=== PATIENT | female | born 1965 | race Caucasian/White ===

== ENCOUNTER 2022-08-11 16:11 | Outpatient (REF) | payer OTHER, SELFPAY ==
--- NOTE | ~2022-08-11 | CT_ITS ---
EXAMINATION: CT HEAD WITHOUT CONTRAST CLINICAL INFORMATION: Tension-type headache. Chronic sinusitis. COMPARISON: There are no prior studies available for comparison. TECHNIQUE: Multidetector CT imaging of the head was obtained without the use of intravenous contrast. Coronal and sagittal reformatted images were generated at the technologist workstation. This CT examination was performed using dose optimization techniques as appropriate, variously including the following: *Automated exposure control *Adjustment of mA and/or kV according to patient size (this includes techniques or standardized protocols for targeted exams where dose is matched to indication/reason for exam; i.e. extremities or head) *Use of iterative reconstruction technique DLP: 665. mGy-cm. FINDINGS: There is no evidence of acute intracranial hemorrhage or territorial infarction. No abnormal mass-effect or midline shift is seen. Lee to white matter differentiation is well preserved. No extra-axial fluid collections are identified. The ventricles and sulci are normal in size. Brain parenchymal attenuation is unremarkable. The osseous structures and soft tissues are normal. The mastoid air cells and visualized paranasal sinuses are well-aerated. Nasal septum is deviated to the right and is a right-sided bony nasal septal spur. CT/CT head/brain wo IV con IMPRESSION: 1. No acute bleeds or infarct. No masses are demonstrated. 2. The visualized paranasal sinuses and mastoid air cells are well-aerated.
== END 2022-08-11 16:12 | disposition home or self-care (01) ==
LOC: HO.CT 16:11
PROVIDERS: Visit Provider Psychiatry & Neurology Neurology
DX: G44.209 Tension-type headache, unspecified, not intractable (principal); J32.9 Chronic sinusitis, unspecified
CPT/HCPCS: 70450

== ENCOUNTER 2024-07-14 09:45 | Emergency (ER) | payer OTHER, SELFPAY ==
--- NOTE | ~2024-07-14 | XR_ITS ---
EXAMINATION: XR SHOULDER, RIGHT CLINICAL INFORMATION: Pain with movement. COMPARISON: None available. TECHNIQUE: Three views of the right shoulder. FINDINGS: Relative lucency in the lateral aspect of the clavicle measuring 2 cm transverse. This of uncertain etiology, could be related to decreased bone mineralization versus a bony lesion. On image 1, there is a 1.4 cm rounded density partially projected over the humeral shaft. This is not visualized on the other views, of uncertain etiology, possibly overlying the patient. Mild acromioclavicular arthritis. Glenohumeral joint space is maintained. No acute fracture or dislocation. XR/XR shoulder RT min 2V IMPRESSION: * No evidence of acute osseous abnormality. * 2 cm focus of relative lucency of the lateral clavicle, of uncertain etiology, could be related to decreased bone mineralization versus underlying bony lesion. Clinically correlate, correlate with patient's clinical history. Further evaluation with bone scan or MRI as clinically indicated. * 1.4 cm density partially projected over the proximal humeral shaft, only seen on one view. This could be overlying the patient. Consider additional radiographs or further evaluation, as clinically indicated. Electronically signed by: Tho Renee MD 07/14/2024 11:43 AM KEERTHI
[2024-07-14 09:56] VITALS: BP 155/89; PULSE 115; RESP 20; TEMP 36.6; O2SAT 98; BMI 31.9
--- NOTE | 2024-07-14 12:44 | ED_ITS ---
HPI - Extremity Problem General Chief complaint: Extremity Injury, Upper Stated complaint: R shoulder/arm pain Time Seen by Provider: 07/14/24 12:43 Source: patient and family Mode of arrival: ambulatory Limitations: no limitations History of Present Illness ED Provider: Xander REEVES Narrative: Patient is a 58-year-old female presenting to the emergency department with complaint of right shoulder pain since Sunday. Denies fall or other trauma. Has not taken any over the counter medications for her symptoms. Denies weakness, numbness, or tingling but reports decreased range of motion due to pain. Denies chest pain, palpitations, dyspnea. States pain present upon waking, unsure if she slept on her arm in an odd manner. MD Complaint: joint pain Onset (ago): day(s) Pain Consistency: constant Location: right and upper extremity Quality: aching Relieving factors: rest Exacerbating factors: range of motion Associated symptoms: denies other symptoms Related Data Previous Rx's ?Medication ?Instructions ?Recorded cyclobenzaprine 5 mg tablet 5 mg PO TID PRN muscle spasm #10 07/14/24 tabs lidocaine 5 % topical patch 1 patch topical DAILY #15 ea 07/14/24 prednisone 20 mg tablet 40 mg (2 x 20 mg) PO DAILY #10 tabs 07/14/24 Allergies Allergy/AdvReac Type Severity Reaction Status Date / Time latex Allergy Unknown Verified 07/14/24 10:00 Review of Systems Review of Systems: As per HPI. Yes all other systems are reviewed and are negative Constitutional: Constitutional: Reports as per HPI [facility] Social History Social History Advance Directives: No Advance Directives Information Provided: Yes Do you have a plan to hurt others: No Plan Physical Exam Vital Signs: Vital Signs: Last Vital Signs Temp 97.9 F 07/14/24 09:56 Pulse 115 H 07/14/24 09:56 Resp 20 07/14/24 09:56 BP 155/89 H 07/14/24 09:56 Pulse Ox 98 07/14/24 09:56 O2 Del Method Room Air 07/14/24 09:56 BMI result Body Mass Index 31.9 Vital signs have been reviewed and appear to be correct. Blood pressure elevated. Heart rate slightly tachycardic. Respiratory rate normal. Temperature normal. Oxygen saturation normal. Const: General: cooperative, healthy appearing and no acute distress Orientation/consciousness: oriented to person, oriented to place, oriented to time and patient oriented x3 Limitations: no limitations HEENT: Head: Yes normocephalic and Yes atraumatic Ears: external ears normal General nose exam: Normal external nose present Face and sinus: Yes face symmetric Mouth: oropharynx normal and moist mucous membranes Throat: Yes uvula midline Eyes: Pupils: Equal, round and reactive pupils present Neck: Neck: Yes normal visual inspection and Yes supple Resp: Effort & Inspection: normal respiratory effort and able to speak in complete sentences Auscultation: clear to auscultation bilaterally Cardio: Rate: regular rate Rhythm: regular rhythm Heart sounds: S1 normal heart sound present and S2 normal heart sound present GI: Palpation (GI): Soft to palpation and nontender Auscultation: normoactive bowel sounds : General: Yes no CVA tenderness Back/Spine/Pelvis: Back: no CVA tenderness Skin: General skin exam: elasticity normal and turgor normal Neuro: General: oriented to person, oriented to place, oriented to time, patient oriented x3, tone normal, moves all extremities, Normal light touch and pain sensation, no focal motor deficits, CN's II-XI intact bilaterally and deep tendon reflexes 2+ bilaterally Cranial nerves: Yes Equal, round and reactive pupils present Cognition (Neuro): normal cognition Motor exam (neuro): Normal motor muscle tone present throughout Extrem: General: Yes full ROM, Yes no pedal edema and Yes no calf tenderness Right upper extremity: shoulder/upper arm Details: normal to inspection, tenderness Location: of the A-C joint and of the proximal humerus and abnormal ROM (abduction to 90 degrees, unable to externally rotate due to pain); no swelling, no ecchymosis, no crepitus, no deformity and no unusual warmth and Extremity exam: right hand Details: vascular exam Details: radial pulse present and normal capillary refill and normal ROM of fingers Psych: Mental Status: mental status grossly normal Affect: normal affect Thought process: Normal thought process present Medications Administered Discontinued Medications Generic Name Dose Route Start Last Admin Trade Name Freq PRN Reason Stop Dose Admin Cyclobenzaprine HCl 10 mg 07/14/24 13:00 07/14/24 13:21 Cyclobenzaprine Hcl 10 Mg Tablet PO 07/14/24 13:01 10 mg ONCE ONE Administration Ketorolac Tromethamine 30 mg 07/14/24 13:00 07/14/24 13:21 Ketorolac Tromethamine 30 Mg/Ml Vial IM 07/14/24 13:01 30 mg ONCE ONE Administration Prednisone 40 mg 07/14/24 13:04 07/14/24 13:21 Prednisone 20 Mg Tablet PO 07/14/24 13:05 40 mg ONCE ONE Administration Medical Decision Making Medical Decision Making [facility] Narrative: Patient is a 58-year-old female presenting to the emergency department with complaint of right shoulder pain since Sunday. On exam patient is awake, A+Ox3, VS WNL, afebrile, normal neurological exam without focal deficits, physical exam findings as above. Given reported symptoms and physical exam findings, initial differential includes right shoulder strain, sprain, rotator cuff tendinopathy, arthritis. Less likely fracture. X-ray notable for no acute abnormalities. My interpretation is in agreement with the radiologist's interpretation. Will treat patient with course of steroids, muscle relaxer. Follow up with PCP as patient would likely benefit from physical therapy. Will also refer to orthopedics for further evaluation and management. Return precautions discussed. Patient verbalized understanding of and agreement with plan. Differential Diagnosis Differential Diagnoses: The differential diagnosis associated with the presentation includes As per MDM. Independent Interpretation I performed an independent interpretation of an: Plain X-Ray Interpretation: No acute abnormalities of the right shoulder. Radiology Impression Discussion of test interpretation with radiology: I have reviewed the radiologist's reading. Radiologist Impression: XR/XR shoulder RT min 2V IMPRESSION: * No evidence of acute osseous abnormality. * 2 cm focus of relative lucency of the lateral clavicle, of uncertain etiology, could be related to decreased bone mineralization versus underlying bony lesion. Clinically correlate, correlate with patient's clinical history. Further evaluation with bone scan or MRI as clinically indicated. * 1.4 cm density partially projected over the proximal humeral shaft, only seen on one view. This could be overlying the patient. Consider additional radiographs or further evaluation, as clinically indicated. External Record Review External record reviewed: Inpatient record, Office record and Outpatient record Prescription Management I considered prescription management with: Pain Medication and Other Discharge Plan Discharge Clinical Impression: Acute pain of right shoulder Patient Disposition: Home, Self-Care Instructions: Rotator Cuff Tendinitis (ED), Shoulder Pain (ED) Additional Instructions: You were evaluated in the emergency department today for right shoulder pain. Your x-ray did not show evidence of any acute injuries. You are being prescribed a course of steroids to decrease inflammation, a muscle relaxer, as well as topical lidocaine patches which you can wear for up to 12 hours in a 24 hour period. Take all medications as prescribed. Do not apply heat directly over the patches. We recommend that you follow-up with your primary care provider as you may require physical therapy to improve your symptoms. You are also being referred to orthopedics for further evaluation. Return to the emergency department with new or concerning symptoms. XR/XR shoulder RT min 2V IMPRESSION: * No evidence of acute osseous abnormality. * 2 cm focus of relative lucency of the lateral clavicle, of uncertain etiology, could be related to decreased bone mineralization versus underlying bony lesion. Clinically correlate, correlate with patient's clinical history. Further evaluation with bone scan or MRI as clinically indicated. * 1.4 cm density partially projected over the proximal humeral shaft, only seen on one view. This could be overlying the patient. Consider additional radiographs or further evaluation, as clinically indicated. Prescriptions: New lidocaine 5 % adhesive patch,medicated 1 patch topical DAILY Qty: 15 0RF Rx Instructions: leave on most painful area for up to 12 hrs cyclobenzaprine 5 mg tablet 5 mg PO TID PRN (Reason: muscle spasm) Qty: 10 0RF prednisone 20 mg tablet 40 mg PO DAILY Qty: 10 0RF Referrals: [facility] [Provider Group] Print Language: Maori
[2024-07-14] MEDS: predniSONE 20 MG TABLET 40 MG PO (13:21)
[2024-07-14] MEDS: Ketorolac Tromethamine 30 MG/ML VIAL IM (13:21)
[2024-07-14] MEDS: Cyclobenzaprine HCl 10 MG TABLET PO (13:21)
[2024-07-14 13:45] VITALS: BP 141/88; PULSE 103; RESP 16; TEMP 37.1; O2SAT 95
[2024-07-14 13:50] VITALS: BP 141/88; PULSE 103; RESP 16; TEMP 37.1; O2SAT 95
== END 2024-07-14 13:50 | disposition home or self-care (01) ==
PROVIDERS: Emergency Provider Emergency Medicine; PCP Internal Medicine
DX: M25.511 Pain in right shoulder (principal); Z79.899 Other long term (current) drug therapy
CPT/HCPCS: 73030; 96372; 99283; 99284; J1885

== ENCOUNTER 2024-10-15 05:16 | Emergency (ER) | payer OTHER, SELFPAY ==
[2024-10-15 05:23] VITALS: BP 164/68; PULSE 100; RESP 18; TEMP 37.1; O2SAT 97; BMI 31.0
[2024-10-15 06:51] LABS: Influenza A PCR POSITIVE (Negative); Influenza B PCR NEGATIVE (Negative); Resp Syncy Virus RNA Qual PCR NEGATIVE (Negative); SARS COV2 PCR INHOUSE NEGATIVE (Negative)
--- NOTE | 2024-10-15 08:52 | ED_ITS ---
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 She is taking tylenol but does not have motrin at home. Her spouse is also sick. She is able to drink, no CP, no dyspnea MD elicited complaint: fever, cough and rhinorrhea Onset (ago): day(s) (4) Consistency: constant Severity: moderate Description of mucous: clear Able to tolerate fluids by mouth: Yes Exacerbating factors: other (movements) Relieving factors: nothing Context: sick contacts Associated symptoms: fever, chills, myalgias and cough Treatments prior to arrival: none Related Data Previous Rx's ?Medication ?Instructions ?Recorded cyclobenzaprine 5 mg tablet 5 mg PO TID PRN muscle spasm #10 07/14/24 tabs lidocaine 5 % topical patch 1 patch topical DAILY #15 ea 07/14/24 prednisone 20 mg tablet 40 mg (2 x 20 mg) PO DAILY #10 tabs 07/14/24 ibuprofen 600 mg tablet 600 mg PO Q6H PRN pain #30 tabs 10/15/24 ondansetron 4 mg disintegrating 4 mg PO Q8H PRN nausea and 10/15/24 tablet vomiting #20 tabs Allergies Allergy/AdvReac Type Severity Reaction Status Date / Time latex Allergy Unknown Verified 10/15/24 05:26 Review of Systems Review of Systems: Constitutional : No Fever, pos Chills, pos Fatigue ENT/Mouth : No sore throat, No Rhinorrhea Eyes: No Eye Pain, No Swelling, No Redness Cardiovascular : No Chest Pain, No SOB, No Dyspnea on Exertion Respiratory : pos Cough, No Sputum Gastrointestinal : pos Nausea, No Vomiting, No Diarrhea, No abdominal Pain Genitourinary : No Dysuria, No Urinary Frequency, No Hematuria, Musculoskeletal : No joint pain, pos Myalgias, No Joint Swelling Skin : No Skin Lesions, No rash Neuro : No Weakness, No Numbness, No Dizziness, no Headache All other systems reviewed and are negative [facility] Past Medical History Attestation statement: The following information was validated with the patient. Source: old records reviewed Medical History Hyperlipidemia Social History Social History (Updated 10/15/24 @ 08:56 by Nancy Bautista DO) Patient Tobacco Use Status: Never used Tobacco Advance Directives: No Advance Directives Information Provided: Yes Do you have a plan to hurt others: No Plan Physical Exam Vital Signs: Vital Signs: Last Vital Signs Temp 98.7 F 10/15/24 05:23 Pulse 100 10/15/24 05:23 Resp 18 10/15/24 05:23 BP 164/68 H 10/15/24 05:23 Pulse Ox 97 10/15/24 05:23 O2 Del Method Room Air 10/15/24 05:23 BMI result Body Mass Index 31.0 Appearance: Alert. Oriented X3. No acute distress. Eyes: Pupils equal, round and reactive to light. ENT: Pharynx normal. Neck: Normal inspection. Neck supple. CVS: Normal heart rate and rhythm. Pulses normal. Respiratory: No respiratory distress. Breath sounds normal. Abdomen: Soft and nontender. Skin: Skin warm and dry. Normal skin color. Normal skin turgor. Extremities: No lower extremity edema. No calf ttp Neuro: Oriented X 3. No motor deficit. No sensory deficit. CN2-12 intact Medical Decision Making Medical Decision Making [facility] Narrative: 59 yo female HLD not toxic here with c/o viral syndrome and URI symptoms at this time she has a flu like illness VS stable and clear lungs will obtain viral panel. she is out of window for tamiflu. Given motrin and tylenol with return precautions Differential Diagnosis Differential Diagnoses: The differential diagnosis associated with the pre sentation includes viral syndrome, lungs clear doubt pneumonia Admission/Observation Consideration of admission/observation: Escalation of care including admission/observation considered VS stable, not toxic stable for DC Lab Data [facility] Lab Attestation statement: I reviewed the patient's lab results. Labs: Lab Results 10/15/24 Range/Units 06:06 Influenza Type A (PCR) POSITIVE A (Negative) Influenza Type B (PCR) NEGATIVE (Negative) RSV RNA Qual (PCR) NEGATIVE (Negative) SARS-CoV-2 RNA (RT-PCR) NEGATIVE (Negative) Discharge Plan Discharge Clinical Impression: Influenza Patient Disposition: Home, Self-Care Instructions: Influenza (ED) Additional Instructions: return for any worsening symptoms or concerns such as difficulty walking, breathing, unable to eat or drink or any other concerns wear a mask and protect others Prescriptions: New ibuprofen 600 mg tablet 600 mg PO Q6H PRN (Reason: pain) Qty: 30 0RF ondansetron 4 mg tablet,disintegrating 4 mg PO Q8H PRN (Reason: nausea and vomiting) Qty: 20 0RF No Action lidocaine 5 % adhesive patch,medicated 1 patch topical DAILY Qty: 15 0RF Rx Instructions: leave on most painful area for up to 12 hrs cyclobenzaprine 5 mg tablet 5 mg PO TID PRN (Reason: muscle spasm) Qty: 10 0RF prednisone 20 mg tablet 40 mg PO DAILY Qty: 10 0RF Stand Alone Forms: Work/School Release Print Language: Belarusian
[2024-10-15 09:11] VITALS: BP 127/90; PULSE 103; RESP 18; TEMP 36.8; O2SAT 99
[2024-10-15 09:18] VITALS: BP 127/90; PULSE 103; RESP 18; TEMP 36.8; O2SAT 99
--- OUTSIDE RECORDS SUMMARY | 2024-10-15 09:18 | XMS_ITS | Encounter Summary ---
Author Organization [facility] Address [address] [place] [address] Care Team Providers Care Parking Lot Spotter Name Role Phone Kayla George MD Primary Care Prov ider Burton Painting PA-C Primary Care Provider [phone] Kayla George MD Primary Care Prov ider Reason for Visit * Reason Comments E-prescribe Rx Request Encounter Details Date Type Department Care Team Description 04/03/2022 Refill Adult Medicine [address] [id number] Maurice Mcconnell PA-C E-prescribe Rx Request Social History Tobacco Use Types Packs/Day Years Used Date Smoking Tobacco: Never Smokeless Tobacco: Never Alcohol Use Standard Drinks/Week Comments No 0 (1 standard drink = 0.6 oz pur e alcohol) very rare Alcohol Habits Answer Date Recorded How often do you have a drink containing alcohol ? Never 07/01/2020 How many drinks containing a lcohol do you have on a typical day when you are drinking? Not asked How often do you have six or more drinks on one occasion? Not asked Sex Assigned at Date Recorded Not on file Job Start Date Occupation Industry Not on file Not on file Not on file documented as of this encounter Miscellaneous Notes * Telephone Encounter - Virginie Beth PA-C - 04/05/2022 3:04 PM EDT That's okay with me thanks * Telephone Encounter - Leona Sotelo M.A. - 04/05/2022 2:45 PM EDT Patient and spouse returned the call, patient advised of all information and will have lab repeatedASAP. Scheduled patient on 05/30/22 at 4PM for med review/ refills, ( appt spot) please advise if this is acceptable. Thank you. * Telephone Encounter - Leona Sotelo M.A. - 04/05/2022 1:19 PM EDT Telephone Information: Left message for patient to return our call, Vit D order placed and see below. * Telephone Encounter - Virginie Beth PA-C - 04/04/2022 9:44 PM EDT Orders placed. Agree with covering provider needs follow up before august * Telephone Encounter - Leona Sotelo M.A. - 04/04/2022 4:23 PM EDT Telephone Information: Left message for patient to return our call, patient needs appointment sooner than [place] if shewould like refill for Vitamin D. Please schedule if appropriate and route back if patient calls back. Sending to provider to order lab for recheck. [id number] * Telephone Encounter - Adrienne Diane PA-C - 04/04/2022 3:47 PM EDT Needs to be seen and needs to have vit D level rechecked for refills. * Telephone Encounter - Leona Sotelo M.A. - 04/04/2022 3:42 PM EDT Lab Results Component Value Date 25OHD 24 12/27/2018 CHEN - 06/14/21 NOV 08/07/22 - w/ NEW PCP *Former [facility] patient, never established with Dr. Guevara. Will you refill? documented in this encounter Plan of Treatment Not on file documented as of this encounter Results * 25 HYDROXY INCLUDES FRACTIONS IF PERFORMED (04/10/2022 3:06 PM EDT) VITAMIN D, 25-HYDROXY 35 30 - 80 ng/mL 04/10/2022 6:48 PM EDT [facility] 04/10/2022 3:06 PM EDT 04/10/2022 3:07 PM EDT Narrative [facility] - 04/10/2022 6:48 PM EDT Release to patient->Immediate Virginie Beth PA-C LAB [facility] documented in this encounter Visit Diagnoses Diagnosis Vitamin D deficiency- Primary Unspecified vitamin D deficiency Abnormal uterine bleeding (AUB) documented in this encounter Care Teams Parking Lot Spotter Relationship Specialty Start Date End Date Kayla George MD [address] [place] [id number] PCP - General Internal Medicine 04/03/22 05/15/22 Burton Paintnig PA-C [address] [place] [id number] PCP - General Internal Medicine 05/16/22 05/29/22 Kayla George MD [address] [place] [id number] PCP - General Internal Medicine 05/30/22 documented as of this encounter
--- OUTSIDE RECORDS SUMMARY | 2024-10-15 09:18 | XMS_ITS | Encounter Summary ---
Author Organization [facility] Address [address] [place] [address] Care Team Providers Care Sliver Former Name Role Phone Leodan Guevara MD Primary Care Provider Kayla Sheppard MD Primary Care Prov ider Burton Painting PA-C Primary Care Provider [phone] Kayla George MD Primary Care Prov ider Reason for Visit * Reason Comments E-prescribe Rx Request Encounter Details Date Type Department Care Team Description 10/06/2021 Refill Adult Medicine [address] [id number] Maurice Mcconnell PA-C E-prescribe Rx Request Social [...] encounter Miscellaneous Notes * Telephone Encounter - Dennys Degroot M.A. - 10/10/2021 4:05 PM EST Lab Results Component Value Date NA 140 05/26/2021 K 4.7 05/26/2021 CO2 27 05/26/2021 CL 108 05/26/2021 BUN 14 05/26/2021 CREAT 0.70 05/26/2021 GLU 110 05/26/2021 CA 9.2 05/26/2021 GFR > 60 05/26/2021 CHEN 06/2021 w/Maurice Mcconnell CHEN w/PCP not on file Next OV not on file Pt nds to schedule appt prior to further refills documented in this encounter Plan of Treatment Not on file documented as of this encounter Visit Diagnoses Not on filedocumented in this encounter Care Teams Sliver Former Relationship Specialty Start Date End Date Leodan Guevara MD PCP - General Internal Medicine 08/09/21 03/09/22 Kayla George MD [address] [place] [id number] PCP - General Internal Medicine 04/03/22 05/15/22 Burton Painting PA-C [address] [place] [id number] PCP - General Internal Medicine 05/16/22 05/29/22 Kayla George MD [address] [place] [id number] PCP - General Internal Medicine 05/30/22 documented as of this encounter
--- OUTSIDE RECORDS SUMMARY | 2024-10-15 09:18 | XMS_ITS | Encounter Summary ---
Author Organization [facility] Address [address] [place] [address] Care Team Providers Care Team Sports Sales Associate Name Role Phone Leodan Guevara MD Primary Care Provider Kayla Sheppard MD Primary Care Prov ider Burton Painting PA-C Primary Care Provider [phone] Kayla George MD Primary Care Prov ider Encounter Details Date Type Department Care Team Description 09/12/2021 [facility] Medical Records [address] [place] [address] Abstract, Provider Social History Tobacco Use Types Packs/Day Years [...] file Not on file Not on file COVID-19 Exposure Response Date Recorded In the last month, have you been in contact with someone who was confirmed or suspected to have Coronavirus / COVID-19? No / Unsure 08/29/2021 3:15 PM EST documented as of this encounter Plan of Treatment Not on file documented as of this encounter Visit Diagnoses Not on filedocumented in this encounter Care Teams Team Sports Sales Associate Relationship Specialty Start Date End Date Leodan Guevara MD PCP - General Internal Medicine 08/09/21 03/09/22 Kayla George MD [address] [place] [phone] PCP - General Internal Medicine 04/03/22 05/15/22 Burton Painting PA-C [address] [place] [id number] PCP - General Internal Medicine 05/16/22 05/29/22 Kayla George MD [address] [place] [id number] PCP - General Internal Medicine 05/30/22 documented as of this encounter
--- OUTSIDE RECORDS SUMMARY | 2024-10-15 09:19 | XMS_ITS | Encounter Summary ---
Author Organization [facility] Address [address] [place] [address] Care Team Providers Care Fiction And Nonfiction Prose Writer Name Role Phone Heather Walsh MD Primary Care Provider Leodan Case MD Primary Care Provider Kayla Sheppard MD Primary Care Prov ider Burton Painting PA-C Primary Care Provider [phone] Kayla George MD Primary Care Prov ider Encounter Details Date Type Department Care Team Description 12/10/2019 Telephone Dermatology - [address] [phone] Julia Hamilton PA-C Social History Tobacco Use Types Packs/Day Years Used Date Smoking Tobacco: Never Smokeless Tobacco: Never Alcohol Use Standard Drinks/Week Comments Yes 0 (1 standard drink = 0.6 oz [...] encounter Miscellaneous Notes * Telephone Encounter - Ronit Yo M.A. - 12/10/2019 12:10 PM EDT Message left for patient to return my call, to reschedule if no concerns. documented in this encounter Plan of Treatment Not on file documented as of this encounter Visit Diagnoses Not on filedocumented in this encounter Care Teams Fiction And Nonfiction Prose Writer Relationship Specialty Start Date End Date Heather Walsh MD PCP - General Internal Medicine 06/11/19 08/08/21 Leodan Guevara MD PCP - General Internal Medicine 08/09/21 03/09/22 Kayla George MD [address] [place] [id number] PCP - General Internal Medicine 04/03/22 05/15/22 Burton Painting PA-C [address] [place] [id number] PCP - General Internal Medicine 05/16/22 05/29/22 Kayla George MD [address] [place] [address] PCP - General Internal Medicine 05/30/22 documented as of this encounter
--- OUTSIDE RECORDS SUMMARY | 2024-10-15 09:19 | XMS_ITS | Encounter Summary ---
Author Organization [facility] Address [address] [place] [address] Care Team Providers Care Senior Manufacturing Test Engineer Name Role Phone Kayla George MD Primary Care Prov ider Encounter Details Date Type Department Care Team Description 08/08/2022 Data Base Design Analyst Report Medical Records [address] [place] [address] Shona Trujillo MD Social History Tobacco Use Types Packs/Day Years [...] Exposure Response Date Recorded In the last 10 days, have mason u been in contact with someone who was confirmed or suspected to have Coronavirus/COVID-19? No / Unsure 08/10/2022 9:24 AM EST documented as of this encounter Plan of Treatment Not on file documented as of this encounter Visit Diagnoses Not on filedocumented in this encounter Care Teams Senior Manufacturing Test Engineer Relationship Specialty Start Date End Date Kayla George MD [address], [place] [phone] PCP - General Internal Medicine 05/30/22 documented as of this encounter
--- OUTSIDE RECORDS SUMMARY | 2024-10-15 09:19 | XMS_ITS | Encounter Summary ---
Author Organization [facility] Address [address] [place] [address] Care Team Providers Care Painter Foreman Name Role Phone Leodan Guevara MD Primary Care Provider Kayla Sheppard MD Primary Care Prov ider Burton Painting PA-C Primary Care Provider [phone] Kayla George MD Primary Care Prov ider Encounter Details Date Type Department Care Team Description 08/15/2021 Hospital Medical Records [address] [place] [address] Javy Dotson MD [address] [place], [place] [phone] Social History Tobacco Use Types Packs/Day Years [...] on file documented as of this encounter Plan of Treatment Not on file documented as of this encounter Visit Diagnoses Not on filedocumented in this encounter Care Teams Painter Foreman Relationship Specialty Start Date End Date Leodan Guevara MD PCP - General Internal Medicine 08/09/21 03/09/22 Kayla George MD [address] [place] [id number] PCP - General Internal Medicine 04/03/22 05/15/22 Burton Painting PA-C [address] [place] [id number] PCP - General Internal Medicine 05/16/22 05/29/22 Kayla George MD [address] [place] [address] PCP - General Internal Medicine 05/30/22 documented as of this encounter
--- OUTSIDE RECORDS SUMMARY | 2024-10-15 09:19 | XMS_ITS | Encounter Summary ---
Author Organization [facility] Address [address] [place] [address] Care Team Providers Care English Composition Teacher Name Role Phone Heather Walsh MD Primary Care Provider Leodan Case MD Primary Care Provider Kayla Sheppard MD Primary Care Prov ider Burton Painting PA-C Primary Care Provider [phone] Kayla George MD Primary Care Prov ider Reason for Visit * Reason Onset Date Comments Medical Records 07/11/2019 Encounter Details Date Type Department Care Team Description 07/11/2019 Telephone OBGYN - [facility] [address] [place] [address] [phone] Javy Dotson MD [address] [place] [address] [phone] Medical Records Social History Tobacco Use Types Packs/Day Years [...] encounter Miscellaneous Notes * Telephone Encounter - Milagro Maldonado, NAVARRO, RN - 07/11/2019 4:13 PM EST ER records from recent ER visit to [facility], unable to print them so copied them below [facility] EDM *LIVE* ED Physician Documentation Summary Report Patient: ES MAXWELL 53/F Service Date: 07/06/19 Account: [id number] : 1965 Service Time: 1627 PCP: JEANNIE MR#: [id number] HPI General Chief Complaint: Vaginal Bleeding Stated Complaint: LOW ABD PAIN /BACK PAIN Time Seen by MD: 16:12 Documentation Initial Comments 53 year old female complaining of Low Abd Pain /Back Pain HPI Comment CHIEF COMPLAINT: Vaginal bleeding HISTORY OF PRESENT ILLNESS: Patient complains of 3-week history of mild to moderate vaginal bleeding. Her last normal menstrual period was in May and then on approximate August 14 that she began having vaginal bleeding that has not stopped. She has some mild cramping with it. She denies anyother symptoms. Onset: 3 weeks Timing: Continuous Severity: Mild Context: Not REVIEW OF SYSTEMS: Constitutional: No fever, no chills. Eyes: No eye pain. ENT: No sore throat. Cardiovascular: No chest pain. Respiratory: No hemoptysis. Gastrointestinal: No bright red blood per rectum. Genitourinary: No hematuria. Musculoskeletal: No back pain. Neurological: No headache. Hematological: no bruising. Immunological: No joint pain. Past Medical History, medications, allergies, family history and social history have been reviewed in the nursing documentation. For more details see nursing documentation. Past Medical History: History of dysmenorrhea in the past Social History: Denies tobacco or alcohol Family History: No family history of diabetes mellitus. Physical Exam General Appearance: Well developed. Eyes: Normal inspection, no pallor or injection. ENT, Mouth: Mucous membranes are moist. Neck: Neck is supple with no midline tenderness. No significant lymphadenopathy. Respiratory: There are no retractions, lungs are clear to auscultation. Cardiovascular: Regular rate and rhythm. Gastrointestinal: Abdomen is soft and nontender no focal tenderness palpation Pelvic exam: The vulva was normal no lesions. The vagina did not have significant discharge mild bleeding. The cervix was closed, no purulent drainage. The uterus was normal size and non tender. Theadnexa had no masses and no tenderness. The exam was performed with a medical practice assistant. Neurological: No gross weakness. Sensory intact. Skin: Warm and dry, no rashes, no petechiae. Musculoskeletal: Extremities are symmetrical, full range of motion. Psychiatric: Normal affect, there is no agitation. Dysfunctional uterine bleeding with a negative test, normal hemoglobin, no signs of severe anemia. ED course and medical decision making: Plan is continue treatment and follow-up with her PCP or OB doc. No indication for hormone use at this time. Re examination: Re examination of the abdomen shows no tenderness to palpation in all four quadrants, no guarding and no rebound. No tenderness at McBurney's point and a negative Rovsing's sign. There are no masses and no pulsatile mass. Clinical impression: Dysfunctional uterine bleeding Past Medical History Past Medical History PMH and Allergies Reviewed: Yes PMH Collected at Triage Allergies: Coded Allergies: latex (Verified Allergy, Intermediate, itchy, 07/06/19) tramadol (Verified Allergy, Intermediate, couldn't wake up, 07/06/19) Social History Smoking Status: Never Smoker Alcohol History: none Drug History: denies Family History Family History: no pertinent family hx Past Inpatient Medical History Inpatient Medical Hx: migraine Exam Exam Vital Signs Vital Signs Date Time Temp Pulse Resp B/P (MAP) Pulse Ox O2 Delivery O2 Flow Rate FiO2 07/06/19 15:40 36.6 97 20 161/86 95 Room Air Course Course Differential Diagnosis Rule out ectopic, rule out anemia Orders Orders Orders Procedure Category Date Status Time Vag Bleeding Ed Nsg ED 07/06/19 Transmitted Protocol 15:44 Hold Tube BBK 07/06/19 Complete 15:44 Draw Venous Blood For ED 07/06/19 Transmitted Labs 15:44 Cbc With Diff LAB 07/06/19 Complete 15:44 Basic Metabolic Panel LAB 07/06/19 Complete BMP 15:44 Ua With Culture If LAB 07/06/19 Complete Indicated 15:44 Laboratory Tests Test 07/06/19 15:51 07/06/19 16:16 White Blood Count 9.2 x10-3/uL Red Blood Count 4.2 x10-6/uL Hemoglobin 12.2 g/dL Hematocrit 38.7 % Mean Corpuscular Volume 92.1 fL Mean Corpuscular Hemoglobin 29.0 pg Mean Corpuscular Hemoglobin Concent 31.5 g/dL Red Cell Distribution Width 12.5 % Platelet Count 253 x10-3/uL Mean Platelet Volume 10.5 fL Immature Granulocyte % (Auto) 0.2 % Neutrophils (%) (Auto) 72.8 % Lymphocytes (%) (Auto) 20.3 % Monocytes (%) (Auto) 5.6 % Eosinophils (%) (Auto) 0.8 % Basophils (%) (Auto) 0.3 % Immature Granulocyte # (Auto) 0.02 x10-3/uL Neutrophils # (Auto) 6.72 x10-3/uL Lymphocytes # (Auto) 1.87 x10-3/uL Monocytes # (Auto) 0.52 x10-3/uL Eosinophils # (Auto) 0.07 x10-3/uL Basophils # (Auto) 0.03 x10-3/uL Neutrophils % (Manual) % Nucleated Red Blood Cells % 0.0 % Nucleated Red Blood Cells # 0.00 x10-3/uL Sodium Level 139 mEq/L Potassium Level 4.1 mmol/L Chloride Level 104 mmol/L Carbon Dioxide Level 31 mmol/L Anion Gap 4 Blood Urea Nitrogen 20 mg/dL Creatinine 0.91 mg/dL Estimat Glomerular Filtration Rate > 60 Random Glucose 132 mg/dL Calcium Level 9.2 mg/dL Urine pH 6.5 Urine Specific Rydal 1.021 Urine Protein Negative mg/dl Urine Glucose (UA) Negative mg/dL Urine Ketones Negative mg/dL Urine Occult Blood Moderate Urine Nitrite Negative Urine Bilirubin Negative Urine Urobilinogen 0.2 E.U./dL Urine Leukocyte Esterase Small Urine RBC 3 /HPF Urine WBC 3 /HPF Urine Epithelial Cells 22 /LPF Urine Bacteria Negative Urine Hyaline Casts /LPF hCG UA Test Result hCG UA Test Result: Negative Departure Diagnosis: Dysfunctional uterine bleeding Disposition: HOME, SELF-CARE Condition: Good Patient Instructions: Dysmenorrhea (ED) Referrals: JEANNIE DENNIS (PCP) BURTON LUGO MD Jul 06, 2019 17:22 ED Physician: BURTON LUGO MD Documentation Date/Time: 07/06/191721 <Electronically signed by BURTON LUGO MD> 07/06/191721 [facility] Run Date: 07/07/[address] [place] [address] Page: 1 Run Time: 0931 Batch: PATIENT: ES MAXWELL SEX:Roosevelt MCMILLAN MD:ER,DOC AGE:53 LOC:EMERGENCY ROOM U#: [id number] :1965 ROOM: [facility] ER ADMISSION DATE: DISCHARGE DATE: Specimen: [id number] Collected: 07/06/19 Received:07/06/19 Source: URINE CC Sp Desc: Procedure Result Site URINE CULTURE Final <10,000 CFU/mL NORMAL SKIN/UROGENITAL ANAYELI PRESENT. documented in this encounter Plan of Treatment Not on file documented as of this encounter Visit Diagnoses Not on filedocumented in this encounter Care Teams English Composition Teacher Relationship Specialty Start Date End Date Heather Walsh MD PCP - General Internal Medicine 06/11/19 08/08/21 Leodan Guevara MD PCP - General Internal Medicine 08/09/21 03/09/22 Kayla George MD [address] [place] [id number] PCP - General Internal Medicine 04/03/22 05/15/22 Burton Painting PA-C [address] [place] [id number] PCP - General Internal Medicine 05/16/22 05/29/22 Kayla George MD [address] [place] [id number] PCP - General Internal Medicine 05/30/22 documented as of this encounter
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
--- OUTSIDE RECORDS SUMMARY | 2024-10-15 09:19 | XMS_ITS | Encounter Summary ---
Author Organization [facility] Address [address] [place] [address] Care Team Providers Care Door Trimmer Name Role Phone Heather Walsh MD Primary Care Provider Leodan Case MD Primary Care Provider Kayla Sheppard MD Primary Care Prov ider Burton Painting PA-C Primary Care Provider [phone] Kayla George MD Primary Care Prov ider Reason for Visit * Reason Comments E-prescribe Rx Request Encounter Details Date Type Department Care Team Description 09/10/2020 Refill General Surgery [facility] [address] [facility] [address] [place] [phone] Chavez Cochran DPM 175 [facility] [address] [place] [address] E-prescribe Rx Request Social History Tobacco Use [...] have Coronavirus / COVID-19? No / Unsure 08/20/2020 12:45 PM EST documented as of this encounter Plan of Treatment Not on file documented as of this encounter Visit Diagnoses Not on filedocumented in this encounter Care Teams Door Trimmer Relationship Specialty Start Date End Date Heather Walsh MD PCP - General Internal Medicine 06/11/19 08/08/21 Leodan Guevara MD PCP - General Internal Medicine 08/09/21 03/09/22 Kayla George MD [address] [place] [phone] PCP - General Internal Medicine 04/03/22 05/15/22 Burton Painting PA-C [address] [place] [phone] PCP - General Internal Medicine 05/16/22 05/29/22 Kayla George MD [address] [place] [id number] PCP - General Internal Medicine 05/30/22 documented as of this encounter
--- OUTSIDE RECORDS SUMMARY | 2024-10-15 09:19 | XMS_ITS | Encounter Summary ---
Author Organization [facility] Address [address] [place] [address] Care Team Providers Care Shade Cloth Finisher Name Role Phone Libra Walsh MD Primary Care Provider Leodan Case MD Primary Care Provider Kayla Sheppard MD Primary Care Prov ider Burton Painting PA-C Primary Care Provider [phone] Kayla George MD Primary Care Prov ider Reason for Visit * Reason Onset Date Comments Headache 03/31/2021 eye problems 03/31/2021 Blood Pressure Elevated 03/31/2021 Encounter Details Date Type Department Care Team Description 03/31/2021 Telephone Adult [address] [address] Libra Walsh MD Headache; eye problems; Blood Pressure Elevated Social History Tobacco Use Types Packs/Day Years [...] encounter Miscellaneous Notes * Telephone Encounter - Sandra Harden R.N. - 03/31/2021 4:59 PM EDT Pt was seen by eye doctor and was treated but still has eye pain and Headache. She was treated for high eye pressure Pt has no chest pain or SOB, denies any N/V/D or fever, she has not been ill, no rashes , she has not had any weakness/ numbness or dizziness, denies any change to vision , pain is located on the left side she does not C/O stiff neck, Advised home care following the Headache Protocol. RN reinforced telephone consultation and advice.Reviewed with the patient the signs and symptoms to watch for that would require immediate attention. If symptoms change, worsen or increase in intensity, to call back immediately. * Telephone Encounter - Ramin Campos - 03/31/2021 2:01 PM EDT Symptoms patient is presenting: The patient has been experiencing some headaches and pain in her eye as well as some high blood pressure For ALL patients calling to schedule any appointment (routine, sick visit, follow up, consult, etc.) in the outpatient setting please ask the following questions: ?? Do you have fever of higher than 101, sore throat with difficulty swallowing or severe shortnessof breath? NO If YES to any of these above symptoms, send a message to triage and do not book. Red dot. If no, an audio or video visit should be booked. ?? Have you had close contact with someone with Coronavirus in the last 14 days? NO ?? Have you traveled abroad? NO ?? Have you traveled recently to another state outside of [place], [place], [place], [place], [place], [place], [place]? NO o If yes, did you quarantine for 14 days or have a negative covid test? NO If yes to any of the above, patient is not to be scheduled in office until after 14 day quarantine or negative covid test. If pain or injury related was it due to an accident at work or from a motor vehicle accident? NO If yes, gather 3rd republican insurance information Date of accident/Injury: How long has patient had these symptoms?: A month PCP: LIBRA WALSH Payor: [employer] FFS / Plan: [employer] / Product Type: MEDICAID RISK documented in this encounter Plan of Treatment Not on file documented as of this encounter Visit Diagnoses Not on filedocumented in this encounter Care Teams Shade Cloth Finisher Relationship Specialty Start Date End Date Libra Walsh MD PCP - General Internal Medicine 06/11/19 08/08/21 Leodan Guevara MD PCP - General Internal Medicine 08/09/21 03/09/22 Kayla George MD [address] [place] [id number] PCP - General Internal Medicine 04/03/22 05/15/22 Burton Painting PA-C [address] [place] [phone] PCP - General Internal Medicine 05/16/22 05/29/22 Kayla George MD [address] [place] [address] PCP - General Internal Medicine 05/30/22 documented as of this encounter
--- OUTSIDE RECORDS SUMMARY | 2024-10-15 09:19 | XMS_ITS | Encounter Summary ---
Author Organization [facility] Address [address] [place] [address] Care Team Providers Care Drafter Heating And Ventilating Name Role Phone Kajal Parish MD Primary Care Provider Un available Heather Walsh MD Primary Care Provider Leodan Case MD Primary Care Provider Kayla Sheppard MD Primary Care Prov ider Burton Painting PA-C Primary Care Provider [phone] Kayla George MD Primary Care Prov ider Reason for Visit * Reason Onset Date Comments Abnormal Mammogram 09/09/2018 Encounter Details Date Type Department Care Team Description 09/09/2018 Telephone Radiology - [address] [id number] Radiology, Authorizing Abnormal Mammogram Social History Tobacco Use Types Packs/Day Years [...] encounter Miscellaneous Notes * Telephone Encounter - Carmencita Mockoy - 10/01/2018 3:17 PM EST Left message [email or web address]. * Telephone Encounter - Mercdees Allison - 09/09/2018 11:42 AM EST Garza on 09/09/18 bw documented in this encounter Plan of Treatment Not on file documented as of this encounter Visit Diagnoses Not on filedocumented in this encounter Care Teams Drafter Heating And Ventilating Relationship Specialty Start Date End Date Kajal Parish MD PCP - General Internal Medicine 04/27/17 Heather Walsh MD PCP - General Internal Medicine 06/11/19 08/08/21 Leodan Guevara MD PCP - General Internal Medicine 08/09/21 03/09/22 Kayla George MD [address] [place] [address] PCP - General Internal Medicine 04/03/22 05/15/22 Burton Painting PA-C [address] [place] [address] PCP - General Internal Medicine 05/16/22 05/29/22 Kayla George MD [address] [place] [address] PCP - General Internal Medicine 05/30/22 documented as of this encounter
--- OUTSIDE RECORDS SUMMARY | 2024-10-15 09:19 | XMS_ITS | Encounter Summary ---
Author Organization [facility] Address [address] [place] [address] Care Team Providers Care Law Instructor Name Role Phone Kajal Parish MD Primary Care Provider Un available Heather Walsh MD Primary Care Provider Unavail Leodan Fernandez MD Primary Care Provider Kayla Sheppard MD Primary Care Prov ider Burton Painting PA-C Primary Care Provider [phone] Kayla George MD Primary Care Prov ider Encounter Details Date Type Department Care Team Description 05/16/2019 Sugar Boiler Report Medical Records [address] [place] [address] David Velez PA-C Social History Tobacco Use Types Packs/Day [...] on filedocumented in this encounter Care Teams Law Instructor Relationship Specialty Start Date End Date Kajal Parish MD PCP - General Internal Medicine 04/27/17 Heather Walsh MD PCP - General Internal Medicine 06/11/19 08/08/21 Leodan Guevara MD PCP - General Internal Medicine 08/09/21 03/09/22 Kayla George MD [address] [place] [address] PCP - General Internal Medicine 04/03/22 05/15/22 Burton Painting PA-C [address] [place] [address] PCP - General Internal Medicine 05/16/22 05/29/22 Kayla George MD [address] [place] [address] PCP - General Internal Medicine 05/30/22 documented as of this encounter
--- OUTSIDE RECORDS SUMMARY | 2024-10-15 09:19 | XMS_ITS | Encounter Summary ---
Author Organization [facility] Address [address] [place] [address] Care Team Providers Care Hardware Supplies Sales Representative Name Role Phone Kajal Parish MD Primary Care Provider Un available Heather Walsh MD Primary Care Provider Unavail Leodan Fernandez MD Primary Care Provider Kayla Sheppard MD Primary Care Prov ider Burton Painting PA-C Primary Care Provider [phone] Kayla George MD Primary Care Prov ider Encounter Details Date Type Department Care Team Description 02/24/2019 Logging Crew Supervisor Report Medical Records [address] [place] [address] Jayesh Baxter Social History Tobacco Use Types Packs/Day Years [...] on filedocumented in this encounter Care Teams Hardware Supplies Sales Representative Relationship Specialty Start Date End Date Kajal Parish MD PCP - General Internal Medicine 04/27/17 Heather Walsh MD PCP - General Internal Medicine 06/11/19 08/08/21 Leodan Guevara MD PCP - General Internal Medicine 08/09/21 03/09/22 Kayla George MD [address] [place] [address] PCP - General Internal Medicine 04/03/22 05/15/22 Burton Painting PA-C [address] [place] [address] PCP - General Internal Medicine 05/16/22 05/29/22 Kayla George MD [address] [place] [address] PCP - General Internal Medicine 05/30/22 documented as of this encounter
--- OUTSIDE RECORDS SUMMARY | 2024-10-15 09:19 | XMS_ITS | Clinical Summary ---
Author Organization [facility] Address [address] [place] [address] Care Team Providers Care Advanced Practice Nurse Name Role Phone Kayla George MD Primary Care Prov ider Medications Medication Sig Dispensed Refills Start Date End Date Status amitriptyline (ELAVIL) 10 MG tablet Take 1 tablet (10 mg total) by mouth every night at bedtime. 0 05/21/2023 Active Cholecalciferol (Vitamin D-[address]) 25 MCG (1000 UT) tablet Take 1,000 Units by mouth. 0 Active famotidine (PEPCID) 20 MG tablet Take 1 tablet (20 mg total) by mouth. 0 05/25/2023 Active ferrous gluconate (FERGON) 324 MG tablet Take 1 tablet (324 mg total) by mouth. 0 Active fluticasone (FLONASE) 50 MCG/ACT nasal spray spray or apply 1 spray inside Nose. 0 05/30/2022 Active ibuprofen 600 MG tablet Take 1 tablet (600 mg total) by mouth. 0 05/16/2022 Active lisinopril (PRINIVIL,ZESTRIL) tablet 5 mg Take 1 tablet (5 mg total) by mouth daily. 0 05/15/2023 Active meclizine (ANTIVERT) 12.5 MG tablet Take 1 tablet (12.5 mg total) by mouth. 0 02/11/2020 Active naproxen (NAPROSYN) 500 MG tablet TAKE 1/2 TABLET BY MOUTH TWO TIMES A DAY WITH MEALS 0 12/01/2021 Active tiZANidine (ZANAFLEX) 2 MG tablet Take 1 tablet (2 mg total) by mouth every 6 (six) hours as needed. 0 Active SUMAtriptan (IMITREX) 50 MG tablet Sumatriptan abortive Take one tablet as needed for headaches, may repeat in 2 hours, do not exceed more than 2 per day 10 tablet 3 07/30/2023 Active Riboflavin 400 MG CAPS Take 400 mg by mouth daily. 30 capsule 3 07/30/2023 Active ergocalciferol (VITAMIN D2) capsule 40537 units Take 1 capsule (50,000 Units total) by mouth once a week. 12 capsule 0 08/02/2023 Active magnesium oxide 400 (240 Mg) MG TABS tablet TAKE 1 TABLET BY MOUTH EVERY DAY 30 tablet 3 12/24/2023 Active Social History Tobacco Use Types Packs/Day Years Used Date Smoking Tobacco: Unknown Tobacco Cessation:Counseling Given: Not Answered Sex and Gender Information Value Date Recorded Sex Assigned at Female 03/26/2023 3:56 PM EDT Gender Identity Not on file Sexual Orientation Not on file Job Start Date Occupation Industry Not on file Not on file Not on file Last Filed Vital Signs Vital Sign Reading Time Taken Comments Blood Pressure 132/85 07/30/2023 2:13 PM EST Pulse 114 07/30/2023 2:13 PM EST Temperature 35.9 ??C (96.6 ??F) 07/30/2023 2:13 PM ES T Respiratory Rate - - Oxygen Saturation - - Inhaled Oxygen Concentration - - Weight - - Height - - Body Mass Index - - Plan of Treatment Health Maintenance Due Date Last Done Comments Hepatitis C Screening 1965 COVID-19 Vaccine (#1) 04/04/1965 Depression Screening 1976 Preventative Health Evaluation 1982 Cervical Cancer Screening (Pap Smear) 1985 Colon Cancer Screening (Colonoscopy) 2009 Breast Cancer Screening (Mammogram) 2014 DTap / Tdap / Td (2 - Td or Tdap) 02/09/2020 02/08/2010 Shingrix-Zoster Vaccine (2 of 2) 08/19/2021 06/24/2021 Influenza Vaccine (#1) 2024 3, 05/30/2022, 05/23/2021, Additional history exists RSV Adult > 60+ Yrs or (1 - 1-dose 75+ series) 2039 Hepatitis B Vaccines Completed 02/08/2010, 02/08/2010, 10/01/2009, Additional history exists Pneumococcal Vaccine Aged Out 11/23/2017 No long er eligible based on patient's age to complete this topic RSV Ped < 20 months Aged Out No longe r eligible based on patient's age to complete this topic Care Teams Advanced Practice Nurse Relationship Specialty Start Date End Date Kayla George MD [address] [place] [address] PCP - General Internal Medicine 03/26/23
--- OUTSIDE RECORDS SUMMARY | 2024-10-15 09:19 | XMS_ITS | Encounter Summary ---
Author Organization [facility] Address [address] [place] [address] Care Team Providers Care Brewing Director Name Role Phone Heather Walsh MD Primary Care Provider Leodan Case MD Primary Care Provider Kayla Sheppard MD Primary Care Prov ider Burton Painting PA-C Primary Care Provider [phone] Kayla George MD Primary Care Prov ider Reason for Visit * Reason Onset Date Comments refill request 11/28/2019 Encounter Details Date Type Department Care Team Description 11/28/2019 Refill Adult Medicine [address] [address] Heather Walsh MD refill request Social History Tobacco Use Types Packs/Day Years [...] encounter Miscellaneous Notes * Telephone Encounter - Leona Sotelo M.A. - 11/28/2019 11:42 AM EDT Refill approved and e-prescribed to patient's pharmacy. * Telephone Encounter - Cee García C.M.A. - 11/28/2019 11:42 AM EDT Script faxed to pharmacy. * Telephone Encounter - Staci Savage M.A. - 11/28/2019 11:37 AM EDT F/u appt 12/01/2019 * Telephone Encounter - Tierney Amaya - 11/28/2019 11:35 AM EDT Patient would like script to be: E-PRESCRIBED/FAXED TO PHARMACY WHEN WAS THE PATIENT'S LAST APPOINTMENT IN ADULT MEDICINE? 10/10/19 WHEN WAS THE LAST TIME THE PATIENT SAW THEIR PCP? 09/26/19 Does patient have an upcoming appointment? Yes 12-01-19 (THE MEDICATION REQUESTED IS ON THE MED LIST ABOVE) All of the medications requested were on the CURRENT MEDS list Did you check the Pharmacy information above?: YES Patient wants: 30 -day supply Is this a mail order prescription request ? NO If the refill is from a FAXED refill request what is the RX # listed on the fax? N/A Patients current insurance carrier is: Payor: [employer] FFS / Plan: [employer] [place] / Product Type: MEDICAID RISK documented in this encounter Plan of Treatment Not on file documented as of this encounter Visit Diagnoses Not on filedocumented in this encounter Care Teams Brewing Director Relationship Specialty Start Date End Date Heather Walsh MD PCP - General Internal Medicine 06/11/19 08/08/21 Leodan Guevara MD PCP - General Internal Medicine 08/09/21 03/09/22 Kayla George MD [address] [place] [address] [id number] PCP - General Internal Medicine 04/03/22 05/15/22 Burton Painting PA-C [address] [place] [address] [phone] PCP - General Internal Medicine 05/16/22 05/29/22 Kayla George MD [address] [place] [address] PCP - General Internal Medicine 05/30/22 documented as of this encounter
--- OUTSIDE RECORDS SUMMARY | 2024-10-15 09:20 | XMS_ITS | Encounter Summary ---
Author Organization [facility] Address [address] [place] [address] Care Team Providers Care Hydraulic Billet Maker Name Role Phone Libra Walsh MD Primary Care Provider Leodan Case MD Primary Care Provider Kayla Sheppard MD Primary Care Prov ider Burton Painting PA-C Primary Care Provider [phone] Kayla George MD Primary Care Prov ider Reason for Visit * Reason Onset Date Comments Orders Call 05/10/2021 Encounter Details Date Type Department Care Team Description 05/10/[address] [phone] Maurice Mcconnell PA-C Orders Call Social History Tobacco Use Types Packs/Day Years [...] have Coronavirus / COVID-19? No / Unsure 04/26/2021 3:41 PM EDT documented as of this encounter Miscellaneous Notes * Telephone Encounter - Kendy Rivas Nicole - 05/10/2021 1:44 PM EDT PLEASE SCHEDULE A HYPERTENSION FOLLOW UP WITH MAURICE MCCONNELL TOWARD THE END OF May. * Telephone Encounter - Kendy Rivas Nicole - 05/10/2021 1:44 PM EDT Patient Name: ES MAXWELL([id number]) Sex: Female : 1965 ?PCP: LIBRA WALSH ?Center: [facility] ?? Types of orders made on 04/26/2021: Procedures Order Date:04/26/2021 Ordering User:KARYN DOTSON M.D. [[id number]] Encounter Provider:Karyn Dotson MD [[id number]] Authorizi alli Provider: Karyn Dotson MD [[id number]] Department:[facility][90] Order Specific Information Order: REFER TO PCP [CPT(R): 45658] ??Order #: [id number]: 1 FUTURE ?Priority: Routine ?Future Order Information ?Expires on:04/26/2022 ?Expected by:04/26/2021 ?Comment:I request an evaluation in Adult Medicine ? Reason for evaluation: hyp ertension ? Priority: the patient should be seen within 1-2 weeks ?Associated Diagnoses ?I10 Essential hypertension ?Priority: Routine ??Class: Normal ?Future Order Information ?Expires on:04/26/2022 ?Expected by:04/26/2021 ?Comment:I request an evaluation in Adult Medicine ? Reason for evaluation: hypertension ? Priority: the patient s hould be seen within 1-2 weeks ?Associated Diagnoses ?I10 Essential hypertension documented in this encounter Plan of Treatment Not on file documented as of this encounter Visit Diagnoses Not on filedocumented in this encounter Care Teams Hydraulic Billet Maker Relationship Specialty Start Date End Date Libra Walsh MD PCP - General Internal Medicine 06/11/19 08/08/21 Leodan Guevara MD PCP - General Internal Medicine 08/09/21 03/09/22 Kayla George MD [address] [place] [address] PCP - General Internal Medicine 04/03/22 05/15/22 Burton Painting PA-C [address] [place] [phone] PCP - General Internal Medicine 05/16/22 05/29/22 Kayla George MD [address] [place] [address] PCP - General Internal Medicine 05/30/22 documented as of this encounter
--- OUTSIDE RECORDS SUMMARY | 2024-10-15 09:20 | XMS_ITS ---
Author Name [facility] Organization Unknown History of Medication Use Medication Directions Dispensed Refills Start Date End Date Stat us Riboflavin 400 MG CAPS Take 400 mg by mouth daily. 07/30/2023 active SUMAtriptan (IMITREX) 50 MG tablet Sumatriptan abortive Take one tablet as needed for headaches, may repeat in 2 hours, do not exceed more than 2 per day 07/30/2023 active Problems Problem Status Onset Date Problem Type Date of Resolution Source Migraine without aura and without status migrainosus, not intractable active EncounterDiagnosisAct CTT HNEMG Generalized headaches active EncounterDiagnosisAct CTTHNE MG
--- OUTSIDE RECORDS SUMMARY | 2024-10-15 09:20 | XMS_ITS | Encounter Summary ---
Author Organization [facility] Address [address] [place] [address] Care Team Providers Care Motor Coach Supervisor Name Role Phone Kajal Parish MD Primary Care Provider Un available Heather Walsh MD Primary Care Provider Leodan Case MD Primary Care Provider Kayla Sheppard MD Primary Care Prov ider Burton Painting PA-C Primary Care Provider [phone] [phone] Kayla George MD Primary Care Prov ider Reason for Visit * Reason Onset Date Comments medication problems 03/22/2018 Encounter Details Date Type Department Care Team Description 03/22/2018 Telephone Adult Medicine [address] [phone] Stacia Belcher PA-C [address] [place] [address] [phone] medication problems Social History Tobacco Use Types Packs/Day Years [...] encounter Miscellaneous Notes * Telephone Encounter - Radha Winters M.A. - 03/25/2018 8:53 AM EDT Message left for patient to return my call. Ext [phone] * Telephone Encounter - Bere Ladd - 03/22/2018 4:40 PM EDT What is the name of the medication patient is having a problem with?: fluticasone 50 MCG/ACT nasal spray and guaifenesin (MUCINEX) 600 MG 12 hr tablet What is the problem?: medications are not covered by her insurance please call and advise Is the patient calling about the problem? NO If the patient is not the caller who is? Yariseliz - daughter Is this a NEW medication?: YES How long has the patient been taking this medication? Has not taken yet Who prescribed this medication for the patient? Stacia Belcher Who is patients PCP?: Kajal Parish Payor: [employer] FFS / Plan: [employer] / Product Type: MEDICAID RISK documented in this encounter Plan of Treatment Not on file documented as of this encounter Visit Diagnoses Not on filedocumented in this encounter Care Teams Motor Coach Supervisor Relationship Specialty Start Date End Date Kajal Parish MD PCP - General Internal Medicine 04/27/17 Heather Walsh MD PCP - General Internal Medicine 06/11/19 08/08/21 Leodan Guevara MD PCP - General Internal Medicine 08/09/21 03/09/22 Kayla George MD [address] [place] [address] PCP - General Internal Medicine 04/03/22 05/15/22 Burton Painting PA-C [address] [place] [address] PCP - General Internal Medicine 05/16/22 05/29/22 Kayla George MD [address] [place] [address] PCP - General Internal Medicine 05/30/22 documented as of this encounter
--- OUTSIDE RECORDS SUMMARY | 2024-10-15 09:20 | XMS_ITS | Encounter Summary ---
Author Organization [facility] Address [address] [place] [address] Care Team Providers Care Rn Ante Partum Name Role Phone Heather Walsh MD Primary Care Provider Leodan Case MD Primary Care Provider Kayla Sheppard MD Primary Care Prov ider Burton Painting PA-C Primary Care Provider [phone] Kayla George MD Primary Care Prov ider Reason for Visit * Reason Onset Date Comments Error 11/04/2020 Encounter Details Date Type Department Care Team Description 11/04/2020 Telephone OBGYN - [place] [address] [place], [place] [phone] Javy Dotson MD [address] [place] [address] Error Social History Tobacco Use Types Packs/Day Years [...] have Coronavirus / COVID-19? No / Unsure 10/29/2020 3:40 PM EST documented as of this encounter Miscellaneous Notes * Telephone Encounter - Rena Lundy - 11/04/2020 12:31 PM EST documented in this encounter Plan of Treatment Not on file documented as of this encounter Visit Diagnoses Not on filedocumented in this encounter Care Teams Rn Ante Partum Relationship Specialty Start Date End Date Heather Walsh MD PCP - General Internal Medicine 06/11/19 08/08/21 Leodan Guevara MD PCP - General Internal Medicine 08/09/21 03/09/22 Kayla George MD [address] [place] [address] PCP - General Internal Medicine 04/03/22 05/15/22 Burton Painting PA-C [address] [place] [address] PCP - General Internal Medicine 05/16/22 05/29/22 Kayla George MD [address] [place] [address] PCP - General Internal Medicine 05/30/22 documented as of this encounter
--- OUTSIDE RECORDS SUMMARY | 2024-10-15 09:20 | XMS_ITS | Encounter Summary ---
Author Organization [facility] Address [address] [place] [address] Care Team Providers Care Complex Care Nurse Practitioner Name Role Phone Kajal Parish MD Primary Care Provider Un available Heather Walsh MD Primary Care Provider Leodan Case MD Primary Care Provider Kayla Sheppard MD Primary Care Prov ider Burton Painting PA-C Primary Care Provider [phone] Kayla George MD Primary Care Prov ider Reason for Visit * Reason Onset Date Comments Storage Garage Attendant Feedback 05/22/2017 shahriar Encounter Details Date Type Department Care Team Description 05/22/2017 Telephone Adult Medicine [address] [address] Kajal Parish MD Storage Garage Attendant Feedback (shahriar) Social History Tobacco Use Types Packs/Day Years Used Date Smoking Tobacco: Never Alcohol Habits Answer Date Recorded How often [...] encounter Miscellaneous Notes * Telephone Encounter - Jane Wahl - 05/22/2017 3:34 PM EDT Enter New Referral Referral Confirmation You have successfully submitted the Referral for [facility] . The following Referral Authorization Number should be retained in your records. Referral Authorization # [id number] Number of Visits 16 If you require assistance or support related to this submission, please contact Customer Support [phone]. 05/22/17-05/22/18 16visits [facility] * Telephone Encounter - Gissell Stevenson - 05/22/2017 3:19 PM EDT What insurance does the patient have today? [place]or[place] / Plan: MEDICAID [place]CC / Product Type:MEDICAID [id number] Effective 06/03/09: [employer] will not retro referral requests over 90 days. If request is for this please instruct patient to call the 800# on their insurance card to appeal. Do not submit a request. Referrals cannot be processed if the insurance is not accurate. If the insurance listed above in red is NO BILLING INFORMATION FOUND FOR THIS ENCOUTNER The patients correct insurance must be obtained and registered in [facility] or their referral can not be processed. Is this a retro request? NO. If yes for what date of service do you need the retro referral? N/A Who is calling to request this referral? PT Office If the caller is not the patient, what is their name? Estela Ask the patient WHO referred them to this specialty: Patient saw Dr. Parish at [facility] for the problem and was told if symptoms did not resolve or worsen they would refer them to this specialty FIRST and LAST NAME of SPECIALIST PATIENT is seeing: Shahriar Littlejohn What specialty is this? Physical Therapy DIAGNOSIS Patient is being seen for (Not a body part or a procedure): Back Pain Have you seen this SPECIALIST for this PROBLEM/DX before?YES If YES, when: Have you checked REVIEW or the APPT DESK to see if this referral has already been done or has visits left? YES Is this visit:Initial Visit Address of Specialist:[address] [place] [address] Phone # of Specialist:[phone] Fax #: (if applicable):[phone] Does patient have an appointment scheduled?: YES Date of appointment- (including a retro-request): 06/04/17 Is this appointment related to: Not MVA, WC or Surgery related documented in this encounter Plan of Treatment Not on file documented as of this encounter Visit Diagnoses Not on filedocumented in this encounter Care Teams Complex Care Nurse Practitioner Relationship Specialty Start Date End Date Kajal Parish MD PCP - General Internal Medicine 04/27/17 Heather Walsh MD PCP - General Internal Medicine 06/11/19 08/08/21 Leodan Guevara MD PCP - General Internal Medicine 08/09/21 03/09/22 Kayla George MD [address] [place] [id number] PCP - General Internal Medicine 04/03/22 05/15/22 Burton Painting PA-C [address] [place] [id number] PCP - General Internal Medicine 05/16/22 05/29/22 Kayla George MD [address] [place] [id number] PCP - General Internal Medicine 05/30/22 documented as of this encounter
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
--- OUTSIDE RECORDS SUMMARY | 2024-10-15 09:20 | XMS_ITS | Encounter Summary ---
Author Organization [facility] Address [address] [place] [address] Care Team Providers Care Health And Social Care Teacher Name Role Phone Kajal Parish MD Primary Care Provider Un available Heather Walsh MD Primary Care Provider Leodan Case MD Primary Care Provider Kayla Sheppard MD Primary Care Prov ider Burton Painting PA-C Primary Care Provider [phone] Kayla George MD Primary Care Prov ider Reason for Visit * Reason Onset Date Comments REFERRAL 08/17/2017 obgyn Encounter Details Date Type Department Care Team Description 08/17/2017 Telephone OBGYN - [address] [address] David Arita MD REFERRAL (obgyn) Social History Tobacco Use Types Packs/Day Years [...] encounter Miscellaneous Notes * Telephone Encounter - Mone Baxter - 08/17/2017 2:35 PM EST FYI to referring provider; We have attempted to contact this patient for the order placed to see SENIOR ASSET MANAGER for routine exam, however, patient has not responded to any of our attempts and for this reason patients order will be closed. If patient changes her mind please have her contact SENIOR ASSET MANAGER for an appointment Thank you documented in this encounter Plan of Treatment Not on file documented as of this encounter Visit Diagnoses Not on filedocumented in this encounter Care Teams Health And Social Care Teacher Relationship Specialty Start Date End Date Kajal Parish MD PCP - General Internal Medicine 04/27/17 Heather Walsh MD PCP - General Internal Medicine 06/11/19 08/08/21 Leodan Guevara MD PCP - General Internal Medicine 08/09/21 03/09/22 Kayla George MD [address] [place] [id number] PCP - General Internal Medicine 04/03/22 05/15/22 Burton Painting PA-C [address] [place] [id number] PCP - General Internal Medicine 05/16/22 05/29/22 Kayla George MD [address] [place] [id number] PCP - General Internal Medicine 05/30/22 documented as of this encounter
--- OUTSIDE RECORDS SUMMARY | 2024-10-15 09:20 | XMS_ITS | Encounter Summary ---
Author Organization [facility] Address [address] [place] [address] Care Team Providers Care Eap Consultant Name Role Phone Kajal Parish MD Primary Care Provider Un available Heather Walsh MD Primary Care Provider Unavail Leodan Fernandez MD Primary Care Provider Kayla Sheppard MD Primary Care Prov ider Burton Painting PA-C Primary Care Provider [phone] Kayla George MD Primary Care Prov ider Encounter Details Date Type Department Care Team Description 08/22/2018 Hospital Medical Records [address] [place] [address] Javy Dotson MD [address] [place], [place] [id number] Social History Tobacco Use Types Packs/Day Years [...] on filedocumented in this encounter Care Teams Eap Consultant Relationship Specialty Start Date End Date Kajal Parish MD PCP - General Internal Medicine 04/27/17 Heather Walsh MD PCP - General Internal Medicine 06/11/19 08/08/21 Leodan Guevara MD PCP - General Internal Medicine 08/09/21 03/09/22 Kayla George MD [address] [place] [id number] PCP - General Internal Medicine 04/03/22 05/15/22 Burton Painting PA-C [address] [place] [id number] PCP - General Internal Medicine 05/16/22 05/29/22 Kayla George MD [address] [place] [id number] PCP - General Internal Medicine 05/30/22 documented as of this encounter
== END 2024-10-15 09:19 | disposition home or self-care (01) ==
PROVIDERS: Emergency Provider Emergency Medicine; PCP Internal Medicine
DX: J10.1 Influenza due to other identified influenza virus with other respiratory manifestations (principal); Z03.818 Encounter for observation for suspected exposure to other biological agents ruled out
CPT/HCPCS: 0241U; 99283